=== PATIENT | male | born 1975 | race Two or more races ===

== ENCOUNTER 2017-06-24 04:41 | Emergency (ER) | payer OTHER ==
[~2017-06-24] VITALS: Ht 167.6 cm; Wt 70.3 kg
--- NOTE | 2017-06-24 04:45 | NUR ---
PT BIB [facility] TO ER BED 8, PT ETOH. PT SMELLS STRONGLY OF ALCOHOL. PT VSS/RESP EVEN UNLABORED/NAD NOTED/SKIN WARM AND DRY/DENIES N/V. PT FOLLOWS VERBAL COMMANDS. AROUSES TO VOICE. AWAITING MD BRADY.
--- NOTE | 2017-06-24 05:46 | NUR ---
CONTINUING TO MONITOR PT PROVIDING SAFETY AND COMFORT MEASURES.
--- NOTE | 2017-06-24 07:19 | NUR ---
Patient is resting comfortably in bed with eyes closed. Easily aroused. VSS
--- NOTE | 2017-06-24 07:33 | NUR ---
ACCUCHECK DONE - BS LEVEL 85
--- NOTE | 2017-06-24 07:37 | NUR ---
REPORT GIVEN TO [facility] FOR [facility].
--- NOTE | 2017-06-24 09:41 | NUR ---
Patient is resting comfortably in bed with eyes closed. Easily aroused. VSS
[2017-06-24 11:12] VITALS: BP 127/85
== END 2017-06-24 11:12 | disposition home or self-care (01) ==
LOC: ER 04:42
DX: F10.129 Alcohol abuse with intoxication, unspecified (principal); R79.89 Other specified abnormal findings of blood chemistry
CPT/HCPCS: 82962; 99283; A4606; Z7610